=== PATIENT | female | born 2005 | race Caucasian/White ===

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

== ENCOUNTER 2024-08-30 07:13 | Outpatient (CLI) | payer BC, SELFPAY ==
--- NOTE | 2024-08-30 07:15 | CRLHL7_ITS ---
For Patients: As a result of the Cures Act, medical imaging exams and procedure reports are released immediately into your electronic medical record. You may view this report before your referring provider. If you have questions, please contact your health care provider. OB ULTRASOUND INDICATION: Dating. TECHNIQUE: Real time grayscale imaging of the fetus was performed. Transvaginal. LMP: 07/03/2024. ANDRES by LMP: 04/09/2025. GA: 8 w, 2 d. Previous US: No. CRL: 1.9 cm. 8 w 3 d. ANDRES: 04/08/2025. FHR: 171 BPM. Gestational sac: 2.4 cm. Appears within normal limits. Yolk sac: 3.4 mm. Appears within normal limits. Right ovary: 3.1 x 1.4 x 2.0 cm. Left ovary: 5.3 x 5.3 x 6.1 cm. IMPRESSION: 1. Single living intrauterine with sonographic gestational age 8 weeks 3 days and sonographic due date 04/08/2025. 2. Subchorionic hemorrhage measures 1.2 x 0.6 x 2.0 cm. 3. Simple circumscribed left ovarian cyst measures 5.1 x 4.5 x 5.6 cm. Casey Shelton M.D. Diagnostic Radiologist [email or web address] [email or web address] [email or web address]/Dictated by: Casey Shelton MD @ 08/30/2024 9:29:00 AM (Electronically Signed)
== END 2024-08-30 07:14 | disposition home or self-care (01) ==
LOC: US 07:15
PROVIDERS: PCP Pediatrics; Referring Provider Advanced Practice Midwife; Visit Provider Advanced Practice Midwife
DX: Z34.91 Encounter for supervision of normal pregnancy, unspecified, first trimester (principal); O20.9 Hemorrhage in early pregnancy, unspecified; O34.81 Maternal care for other abnormalities of pelvic organs, first trimester; N83.292 Other ovarian cyst, left side; Z3A.08 8 weeks gestation of pregnancy
CPT/HCPCS: 76817; 83021; 86592; 86703; 86704; 86706; 86762; 86787; 86803; 86850; 86900; 86901; 87086; 87340

== ENCOUNTER 2024-09-28 12:28 | Outpatient (CLI) | payer BC, SELFPAY | END 2024-09-28 12:29 | disposition home or self-care (01) | LOC: NFLDREF 10-05 17:17 | PROVIDERS: PCP Pediatrics; Referring Provider Pediatrics; Visit Provider Advanced Practice Midwife | DX: Z34.81 Encounter for supervision of other normal pregnancy, first trimester (principal); R82.90 Unspecified abnormal findings in urine | CPT/HCPCS: 87086; 87491; 87591 ==

== ENCOUNTER 2024-11-26 11:36 | Outpatient (CLI) | payer MEDICAID, SELFPAY ==
--- NOTE | 2024-11-26 11:30 | CRLHL7_ITS ---
For Patients: As a result of the Century Cures Act, medical imaging exams and procedure reports are released immediately into your electronic medical record. You may view this report before your referring provider. If you have questions, please contact your health care provider. OB ULTRASOUND SURVEY LMP: 07/03/2024. ANDRES by LMP: 04/09/2025. GA: 20 w, 6 d. INDICATION: anatomy. TECHNIQUE: Real time grayscale imaging of the fetus was performed. Evaluate anatomy. Transabdominal imaging performed. position: Vertex. Cervix: Visualized. Technique: Transabdominal. Length of closed cervix: 3.6 cm. Placenta/cord: Posterior. Technique: Transabdominal. Placenta tip to internal OS: 11.2 cm. Umbilical Cord: 3-vessel cord. Placenta insertion: Marginal (within 2 cm of placenta edge). Amniotic Fluid: 3.6 cm SDP (greater than/equal to: 2- less than 8 cm). SURVEY: Observed Structures. Calvarium/Spine: Cerebellum: 2.2 cm, 21 w 4 d. Cisterna Magna: 2.9 mm. Nuchal Fold: 4.3 mm. Lateral Ventricle: 4.7 mm. CSP: Yes. Midline Falx: Yes. Choroid Plexus: Yes. Spine: Yes. Abdomen: Stomach: Yes. Abd Cord Insertion: Yes. Urinary Bladder: Yes. Kidneys: Yes. Diaphragm: Yes. Face: Nose/lips: Yes. Orbital view: Yes. Profile: Yes. Limbs: Upper Extremities: Yes. Lower Extremities: Yes. Hands: Yes. Feet: Yes. Vascular: 4-Chamber Heart: Yes. LVOT: Yes. RVOT: Yes. 3VV: Yes. 3VTV: Yes. BPD: 4.8 cm. 20 w, 3 d, 32.3 percent. HC: 18.5 cm. 20 w, 6 d, 40.7 percent. AC: 15.9 cm. 21 w, 0 d, 47.7 percent. FL: 3.5 cm. 21 w, 1 d, 50.4 percent. FL/AC ratio: 22.19 percent. HC/AC ratio: 1.17. heart rate: 139 bpm. age by this US: 21 w, 0 d. ANDRES by this US: 04/08/2025. EFW: 1392.43 g. Weight: 0 lbs, 14 oz. Percentile by ANDRES: 53.1 percent. IMPRESSION: 1. Marginal placental cord insertion located 1.4 cm from the placental edge. 2. Concordance of clinical and sonographic dating. 3. Normal anatomy. Casey Shelton M.D. Diagnostic Radiologist [email or web address] [email or web address]/Dictated by: Casey Shelton MD @ 11/26/2024 4:20:00 PM (Electronically Signed)
== END 2024-11-26 11:37 | disposition home or self-care (01) ==
LOC: US 11:36
PROVIDERS: PCP Pediatrics; Visit Provider Advanced Practice Midwife
DX: Z34.92 Encounter for supervision of normal pregnancy, unspecified, second trimester (principal); O43.192 Other malformation of placenta, second trimester; Z3A.20 20 weeks gestation of pregnancy
CPT/HCPCS: 76805

== ENCOUNTER 2024-12-02 19:08 | Outpatient (CLI) | payer MEDICAID, SELFPAY ==
--- OUTSIDE RECORDS SUMMARY | 2024-12-02 18:43 | XMS_ITS | Clinical Summary ---
Author Organization [facility] Address [address] [place] [address] Care Team Providers Care Panel Flow Machine Operator Name Role Phone Unavailable Primary Care Provider Unavailabl e Source Comments Patient records contain information from all sites at [facility]. For routine questions regarding patient records, call [phone] during business hours, M-F 8:00 AM - 5:00 PM Central Time. Record requests for emergency care only can be directed to [phone] at any time.[facility] Allergies Active Allergy Reactions Criticality Noted Date Comments Ceftriaxone Other (see comments) 2004 PN: LW Reaction: HIVES Medications * This document contains information received from the source organization and may not represent a complete record from that organization. No known medications Active Problems Problem Noted Date Diagnosed Date Personal History Of Infectio us And Parasitic Disease (COVID-19) 04/11/2020 Immunizations Immunization Administration Dates Next Due 9vHPV 07/01/2016,02/14/2016,12/29/2015 DTaP / Hep B / IPV (Pediarix) 02/15/2005, 005,2004 DTaP-IPV 12/14/2009 H1N1 All Forms 04/04/2009 HepA Pediatric/Adolescent 12/30/2016,08/04/2007 Hib (PRP-OMP) (PedvaxHIB) 2004,2004 MCV4 (Menactra)(Discontinued) 07/31/2020 MCV4 (Menveo) 12/29/2015 MMR 12/14/2009,08/27/2005 MenB (BEXSERO) 07/25/2021 PCV7 (discontinued) 02/15/2005,2004,2004 Tdap 11/05/2021,12/29/2015 VA 12/14/2009,08/27/2005 influenza LAIV (Nasal) (2 ye ars through 49 years) 03/02/2014,03/24/2013 influenza trivalent LAIV (Na sarbjit) (2 years through 49 years) 02/27/2012,02/22/2011 influenza trivalent vaccine (6 months and older)(PF) 03/17/2010,04/04/2009,04/20/2008,2006,07/08/2006,03/22/2005,02/15/2005 influenza vaccine quad (FLUZONE/FLUARIX) (6 months and older)(PF) 03/06/2022,03/16/2021,03/27/2020,2018,03/27/2018,03/13/2017,02/14/2016,1 05/17/2014 Social History Tobacco Use Types Packs/Day Years Used Date Smoking Tobacco: Never Smokeless Tobacco: Never Alcohol Use Standard Drinks/Week Comments Never 0 (1 standard drink = 0.6 oz pur e alcohol) Comments Unknown Sex and Gender Information Value Date Recorded Sex Assigned at Not on file Legal Sex Female 9:53 AM COPY CUTTER Gender Identity Not on file Sexual Orientation Not on file Last Filed Vital Signs Vital Sign Reading Time Taken Comments Blood Pressure 101/70 05/19/2024 1:31 PM COPY CUTTER Pulse 84 05/19/2024 1:31 PM COPY CUTTER Temperature 35.6 C (96.1 F) 05/19/2024 1:31 PM COPY CUTTER Respiratory Rate 16 05/19/2024 1:31 PM COPY CUTTER Oxygen Saturation - - Inhaled Oxygen Concentration - - Weight 51.6 kg (113 lb 12.1 oz) 05/19/2024 1:31 PM COPY CUTTER Height 164.7 cm (5' 4.84) 05/19/2024 1:31 PM CS T Body Mass Index 19.02 05/19/2024 1:31 PM COPY CUTTER Plan of Treatment Health Maintenance Due Date Last Done Comments Chlamydia and Gonorrhea Screening 2004 HIV Screening 2004 Hearing Screening during Well Child Visit 2004 Hepatitis C Screening 2004 TB Screening during Well Child Visit 2004 1 week Well Child Check-Up 2004 1 month Well Child Check-Up 2004 2 month Well Child Check-Up 2004 4 month Well Child Check-Up 2004 9 month Well Child Check-Up 03/13/2005 15 month Well Child Check-Up 09/10/2005 18 month Well Child Check-Up 12/11/2005 2 year Well Child Check-Up 06/13/2006 30 month Well Child Check-Up 12/11/2006 3 year Well Child Check-Up 06/13/2007 Well Child Check-Up Completed in Past Year 06/13/2007 5 year Well Child Check-Up 06/13/2009 6 year Well Child Check-Up 06/13/2010 7 year Well Child Check-Up 06/13/2011 8 year Well Child Check-Up 06/13/2012 10 year Well Child Check-Up 06/13/2014 12 year Well Child Check-Up 06/13/2016 13 year Well Child Check-Up 06/13/2017 13 year Well Child Check-Up 06/13/2018 Vision Screening during Well Child Visit 2018 14 year Well Child Check-Up 06/13/2019 16 year Well Child Check-Up 06/13/2021 MenB Vaccine (2 of 2 - Bexsero SCDM 2-dose series) 01/25/2022 07/25/2021 17 year Well Child Check-Up 06/13/2022 18 year Well Child Check-Up 06/13/2023 COVID-19 Vaccine ( season) 2024 10/10/2020, 09/19/2020 Depression Screening (Annual PHQ-2) 05/12/2024 19 year Well Child Check-Up 06/13/2024 Well Child Check-Up ([facility]) 06/13/2024 Influenza Vaccine (#1) 2025 2, 03/16/2021, 03/27/2020, Additional history exists DTaP,Tdap,and Td Vaccines (7 - Td or Tdap) 11/06/2031 11/05/2021, 12/29/2015, 12/14/2009, Additional history exists Hepatitis B Vaccines Completed 02/15/2005, 2004, 2004 Pneumococcal vaccine (0-49 years) Aged Out 02/15/2005, 2004, 2004 No longer eligible based on patient's age to complete this topic IPV Vaccines Completed 12/14/2009, 11/2004, 2004, Additional history exists Varicella Vaccines Completed 12/14/2009, 08/27/2005 HPV Vaccines Completed 07/01/2016, 09/2015, 12/29/2015 Anemia/Iron Deficiency Screening During Well Child Visit (if High Risk Menstruating Female) Completed 01/27/2019 Meningococcal Vaccine Completed 07/31/2020, 016 Insurance Post-i Post-i
--- OUTSIDE RECORDS SUMMARY | 2024-12-02 18:43 | XMS_ITS | Clinical Summary ---
Author Organization [facility] Address [address] [place] [address]. [place] [address] Care Team Providers Care Hydraulic Technician Name Role Phone Sara Lemus DO Primary Care Provider [phone] Allergies No known active allergies Medications No known medications Social History Tobacco Use Types Packs/Day Years Used Date Smoking Tobacco: Never Assessed PHQ-2 Answer Date Recorded PHQ-2 Score 1 04/22/2019 Adolescent Education Answer Date Record ed Getting School Help Needed Not on file 02/25 Comments No Sex and Gender Information Value Date Recorded Sex Assigned at Not on file Legal Sex Female 4:49 AM ESCORT BLIND Gender Identity Not on file Sexual Orientation Not on file Last Filed Vital Signs Vital Sign Reading Time Taken Comments Blood Pressure 111/75 04/22/2019 2:53 PM ESCORT BLIND Pulse 92 04/22/2019 2:53 PM ESCORT BLIND Temperature - - Respiratory Rate 18 04/22/2019 2:53 PM ESCORT BLIND Oxygen Saturation 99% 04/22/2019 2:53 PM ESCORT BLIND Inhaled Oxygen Concentration - - Weight 45.4 kg (100 lb) 04/22/2019 2:53 PM ESCORT BLIND Height 160 cm (5' 3) 04/22/2019 2:53 PM ESCORT BLIND Body Mass Index 17.71 04/22/2019 2:53 PM ESCORT BLIND Plan of Treatment Not on file Insurance [place] Care Teams Hydraulic Technician Relationship Specialty Start Date End Date Sara Lemus DO [facility] [address] [place] [address] PCP - General 03/29/19
--- OUTSIDE RECORDS SUMMARY | 2024-12-02 18:43 | XMS_ITS | Encounter Summary ---
Author Organization [facility] Address [address] [place] [address] Care Team Providers Care Information Systems Security Specialist Name Role Phone Sara Lemus DO Primary Care Provider [phone] Wale Castillo MD Unavailable [phone] Lakeisha Wyman MD Unavailable Unavaila ble Encounter Details Date Type Department Care Team (Late st Contact Info) Description 03/29/2019 Orders Only [facility] [place] [address] [place] [address] Wale Castillo MD [address] [place] [address] [address] [place], [place] [id number] Cough (Primary Dx) Social History Tobacco Use Types Packs/Day Years Used Date Smoking Tobacco: Never Assessed Comments Unknown Sex and Gender Information Value Date Recorded Sex Assigned at Not on file Legal Sex Female 4:49 AM WASTE MACHINE OPERATOR Gender Identity Not on file Sexual Orientation Not on file documented as of this encounter Plan of Treatment Pending Results Name Type Priority Associated Diagnoses Date /Time General PFT Lab (Please always keep checked) PFT Routine Cough 04/22/2019 2:02 PM WASTE MACHINE OPERATOR Scheduled Orders Name Type Priority Associated Diagnoses Orde r Schedule Pulmonary Function Test PFT Routine Cough 1 Occurrences starting 03/29/2019 until 03/29/2020 documented as of this encounter Visit Diagnoses Diagnosis Cough- Primary documented in this encounter Care Teams Information Systems Security Specialist Relationship Specialty Start Date End Date Sara Lemus DO [facility] [address] [place] [address] PCP - General 03/29/19 Wale Castillo MD [address] [place] [address] [address] [place] [address] Assigned Pediatric Specialist Provider 03/03/20 02/03/21 Lakeisha Wyman MD Assigned OBGYN Provider 11/03/21 12/07/21 documented as of this encounter
--- OUTSIDE RECORDS SUMMARY | 2024-12-02 18:43 | XMS_ITS | Clinical Summary ---
Author Organization [facility] Address [address] [place] [id number] Care Team Providers Care [employer] Agent Name Role Phone Tato Whitaker MD Primary Care Provide r Allergies Active Allergy Reactions Criticality Noted Date Comments Ceftriaxone *Unknown 2004 PN: LW Reaction: HIVES Medications benzonatate (TESSALON) 200 mg capsuleIndicati ons:Cough present for greater than 3 weeks Take 1 Capsule (200 mg) by mouth 3 times daily if needed for Cough. 21 Capsule 03/17/2024 Active Active Problems Problem Noted Date Diagnosed Date Atkins-Schlatter's disease, left 09/24/2017 Acute pain of left knee 09/19/2017 Avulsion fracture of tibial tuberosity 8 Myopia 03/04/2013 Resolved Problems Problem Noted Date Diagnosed Date Resolved Date Myopia 03/04/2013 03/04/2013 Encounters Date Type Department Care Team Description 12/02/[address] [facility] [address] [place] [address] [phone] Tato Whitaker MD Problem 10/21/[address] [facility] [address] [place] [address] [phone] Tato Whitaker MD Questions from Last 3 Months Immunizations Immunization Administration Dates Next Due AMB Influenza, IIV4 PF (=>6 mos Flulaval,Fluzone Fluarix)(Flu Clinic Only) 03/13/2017,03/17/2015 Social History Tobacco Use Types Packs/Day Years Used Date Smoking Tobacco: Never Smokeless Tobacco: Never Tobacco Cessation:Counseling Given: Yes Comments:no exposure Alcohol Use Standard Drinks/Week Comments No 0 (1 standard drink = 0.6 oz pur e alcohol) Comments No Sex and Gender Information Value Date Recorded Sex Assigned at Not on file Legal Sex Female 7:08 AM ALTERATION INSPECTOR Gender Identity Not on file Sexual Orientation Not on file Obstetrics History Last Filed Vital Signs Vital Sign Reading Time Taken Comments Blood Pressure 113/69 03/17/2024 8:07 PM ALTERATION INSPECTOR Pulse 85 03/17/2024 8:07 PM ALTERATION INSPECTOR Temperature 36.9 C (98.4 F) 03/17/2024 8:07 PM ALTERATION INSPECTOR Respiratory Rate 18 03/17/2024 8:07 PM ALTERATION INSPECTOR Oxygen Saturation 98% 03/17/2024 8:07 PM ALTERATION INSPECTOR Inhaled Oxygen Concentration - - Weight 49.4 kg (109 lb) 03/17/2024 8:07 PM ALTERATION INSPECTOR Height 158 cm (5' 2.21) 09/18/2018 3:18 PM CDT Body Mass Index - - Plan of Treatment Health Maintenance Due Date Last Done Comments Well Child Check for age 3-20 06/13/2007 Tetanus booster 07/12/2015 Depression screening for age 12+ 2016 HIV for age 15-65 07/12/2019 HPV series for age 9-26 (1 - 3-dose series) 07/12/2019 BMI (ht and wt on same day) for age 18+ 2022 Hepatitis C screening for ag e 18-79 2022 Hepatitis B series for 19+ ( 1 of 3 - 19+ 3-dose series) 07/12/2023 COVID-19 vaccine series (2023- season) 2024 10/10/2020, 09/19/2020 Influenza Vaccine (#1) 2025 7, 03/17/2015 Meningococcal series for age 11-21 Aged Out No longer eligible b ased on patient's age to complete this topic Pneumococcal series for age 6-49 Aged Out No longer eligible b ased on patient's age to complete this topic Care Teams [employer] Agent Relationship Specialty Start Date End Date Tato Whitaker MD PCP - General 07/30/06
[2024-12-02 18:44] VITALS: BP 102/66; PULSE 79; RESP 16; TEMP 36.4; O2SAT 97; BMI 21.3
[2024-12-02 19:19] VITALS: PULSE 65; O2SAT 99
[2024-12-02 19:39] VITALS: BP 101/61; PULSE 63; RESP 16; TEMP 36.8; O2SAT 98
[2024-12-02 20:00] LABS: Appearance Urine Clear (Clear)
--- NOTE | 2024-12-02 20:44 | P.OBLDTN_ITS ---
OB - Triage/Final Diagnosis Visit Information Time Seen by Provider: 20:40 Date Seen: 12/02/24 Date of evaluation: 12/02/24 Narrative: Juarez is a 19 year old 2 para 1 at 21.5 weeks gestation by LMP, who presents with sharp abdominal pain rated 10/10 for approximately one hour. She was seen in the ED prior to coming to the birthing unit, no medical cause was found there. She has a history of umbilical hernia repair and reports her pain felt like her hernia pain. It started at her umbilicus and radiated up towards her sternum. Holding pressure to the area helped with her pain but did not resolve it. At the time of my exam she was resting in bed and reporting pain to be 2/10. Abdomen soft, no guarding, wincing with palpation, states it is tender to palpation but not severe. Denies constipation, having large amount of gas or feeling ill in any way. We discussed possibility that she has some adhesions from her surgery that could cause the pain as her uterus grows or with positioning. Other possibilities include hard stool or gas pains. Encouraged heat or ice to area, holding pressure and Tylenol this evening for discomfort. If return of severe pain that does not resolve quickly should return for evaluat ion. She got up and ambulated before discharge and reported no increase in pain. FHR by doppler 150's. UA normal, denies leaking of fluid, vaginal discharge or bleeding. Patient and partner were comfortable with discharging home. Evaluation Laboratory results: Laboratory Tests 12/02/24 Range/Units 19:52 Urine Color Yellow (Yellow) Urine Appearance Clear (Clear) Urine pH 5.5 (5.0-8.5) Ur Specific Daggett 1.010 (1.000-1.030) Urine Protein Negative (Negative) Urine Glucose (UA) Negative (Negative) Urine Ketones Negative (Negative) Urine Blood Negative (Negative) Urine Nitrite Negative (Negative) Urine Bilirubin Negative (Negative) Urine Urobilinogen 0.2 (0.2-1.0) Ur Leukocyte Esterase Negative (Negative) Vital signs: Vital Signs - 24 hr 12/02/24 18:44 12/02/24 19:19 12/02/24 19:39 Temperature 97.5 F L Pulse Rate Pulse Rate [Pulse Oximeter] 79 Respiratory Rate 16 Blood Pressure Blood Pressure [Right Upper Arm] 102/66 Pulse Oximetry 97 99 98 Oxygen Delivery Method Room Air 12/02/24 19:39 12/02/24 19:39 12/02/24 19:39 Temperature 98.3 F Pulse Rate 63 Pulse Rate [Pulse Oximeter] Respiratory Rate 16 Blood Pressure 101/61 Blood Pressure [Right Upper Arm] Pulse Oximetry Oxygen Delivery Method Final Diagnosis (1) Abdominal pain affecting : Status: Acute
[2024-12-02] MEDS: ACETAMINOPHEN 500 MG TABLET 1000 MG PO (20:47)
--- NOTE | 2024-12-02 21:05 | PC.NURSE ---
Pt here at 21.5 weeks for abdominal pain. Pt reported sharp pain starting at her umbilicus and traveling up to the epigastric area. Reported that the pain was 10/10 and lasted about an hour. Pt was evaluated in the ED prior to coming to the center. Upon arrival to the center, pt stated the pain had mostly subsided but was still there at a 2/10. She reported a surgical history of an umbilical hernia repair. Pt also reported some low back pain that comes and goes and is worse on the right side versus the left side. UA was collected and sent. Summer Elliott CNM came to bedside to evaluate patient. FHR was assessed via doppler. Pt was given oral tylenol prior to discharging home with significant other. All discharge information was discussed with the patient and the patient left the unit ambulatory at 2100.
== END 2024-12-02 21:00 | disposition home or self-care (01) ==
LOC: ED 19:08 → OB 19:08
PROVIDERS: PCP Pediatrics; Visit Provider Advanced Practice Midwife
DX: O26.899 Other specified pregnancy related conditions, unspecified trimester (principal); R10.9 Unspecified abdominal pain
CPT/HCPCS: 81003; G0463; A9270

== ENCOUNTER 2025-01-17 10:15 | Outpatient (CLI) | payer MEDICAID, SELFPAY | END 2025-01-17 10:16 | disposition home or self-care (01) | LOC: NFLDREF 01-20 16:52 | PROVIDERS: PCP Pediatrics; Referring Provider Pediatrics; Visit Provider Advanced Practice Midwife | DX: Z34.90 Encounter for supervision of normal pregnancy, unspecified, unspecified trimester (principal); R73.09 Other abnormal glucose | CPT/HCPCS: 86592 ==

== ENCOUNTER 2025-01-20 15:14 | Outpatient (CLI) | payer MEDICAID, SELFPAY ==
[2025-01-20 15:30] VITALS: BP 109/64; PULSE 82; PULSE 83; RESP 16; TEMP 36.8; O2SAT 98
[2025-01-20 16:04] LABS: Amnisure Rom* Negative
--- NOTE | 2025-01-20 16:26 | PC.OBNST ---
NST Note NST Note Start: 01/20/25 15:34 Freq: ONCE Status: Active Protocol: Document 01/20/25 16:06 CUAUHTEMOC (Rec: 01/20/25 16:07 [id number] [id number]) NST Note 2 Para (# of births) 1 EDC 04/09/25 Gestational Age In 28 Weeks & 5 Days Weeks & Days Patient Presented Leaking fluid with Complaint(s) of Other Complaints states after she voided on the toliet she felt a gush of fluid around 1300 today. Amnisure done and was negative. Reactive Yes Appropriate for Yes Gestational Age GERRY Damon RN Date 01/20/25 Reactive Yes Appropriate for Yes Gestational Age GERRY Rondon CNM Date 01/20/25 OB NST charge Yes Complete NST Note Yes via Write Note The provider's electronic signature indicates the NST is reactive/appropriate for gestational age. *Note to provider: If an addendum is required, open the patient's chart and click on the note under the Nurse/Allied Health tab.
[2025-01-20 16:36] LABS: Appearance Urine Clear (Clear)
[2025-01-20 16:40] LABS: Trichomonas No Trichomonas Seen (None Seen)
== END 2025-01-20 16:36 | disposition home or self-care (01) ==
LOC: OB OUT 15:14 → OB 15:15
PROVIDERS: PCP Pediatrics; Visit Provider Midwife
DX: O47.03 False labor before 37 completed weeks of gestation, third trimester (principal); Z3A.28 28 weeks gestation of pregnancy
CPT/HCPCS: 59025; 81003; 84112; 87086; 87210; G0463

== ENCOUNTER 2025-01-21 08:47 | Outpatient (CLI) | payer MEDICAID, SELFPAY | END 2025-01-21 08:48 | disposition home or self-care (01) | LOC: NFLDREF 01-25 08:49 | PROVIDERS: PCP Pediatrics; Referring Provider Pediatrics; Visit Provider Advanced Practice Midwife | DX: R73.09 Other abnormal glucose (principal) | CPT/HCPCS: 82951; 82952 ==

== ENCOUNTER 2025-03-03 14:25 | Outpatient (CLI) | payer MEDICAID, SELFPAY | END 2025-03-03 14:26 | disposition home or self-care (01) | LOC: NFLDREF 03-05 19:16 | PROVIDERS: Visit Provider Advanced Practice Midwife | DX: Z34.93 Encounter for supervision of normal pregnancy, unspecified, third trimester (principal) | CPT/HCPCS: 82728 ==

== ENCOUNTER 2025-03-06 01:19 | Outpatient (CLI) | payer MEDICAID, SELFPAY ==
[2025-03-06 01:37] VITALS: BP 122/72; PULSE 86
[2025-03-06] MEDS: ACETAMINOPHEN 500 MG TABLET 1000 MG PO (02:08)
[2025-03-06 02:15] LABS: Appearance Urine Clear (Clear)
--- NOTE | 2025-03-06 03:46 | PC.OBNST ---
NST Note NST Note Start: 03/06/25 01:27 Freq: ONCE Status: Active Protocol: Document 03/06/25 03:34 AML (Rec: 03/06/25 03:36 AML No Response) NST Note 2 Para (# of births) 1 EDC 04/09/25 Gestational Age In 35 Weeks & 1 Days Weeks & Days Patient Presented Pain with Complaint(s) of Other Complaints Low abdominal pain, sharp. Described as constant but also that it comes and goes. Later complained of right upper quadrant pain. Also complained of right ear pain. Reactive Yes Appropriate for Yes Gestational Age GERRY Rosen RN Date 03/06/25 Reactive Yes Appropriate for Yes Gestational Age GERRY Santiago RN Date 03/06/25 OB NST charge Yes Complete NST Note Yes via Write Note The provider's electronic signature indicates the NST is reactive/appropriate for gestational age. *Note to provider: If an addendum is required, open the patient's chart and click on the note under the Nurse/Allied Health tab.
== END 2025-03-06 03:30 | disposition home or self-care (01) ==
LOC: OB OUT 01:19 → OB 01:20
PROVIDERS: Visit Provider Advanced Practice Midwife
DX: O47.03 False labor before 37 completed weeks of gestation, third trimester (principal); Z3A.35 35 weeks gestation of pregnancy
CPT/HCPCS: 59025; 81003; G0463; A9270

== ENCOUNTER 2025-03-17 16:39 | Outpatient (CLI) | payer MEDICAID, SELFPAY ==
[2025-03-18 12:23] LABS: Strep B DNA Probe Negative (Negative)
[2025-03-18 12:38] LABS: Strep B Susceptibility Needed? No
== END 2025-03-17 16:40 | disposition home or self-care (01) ==
LOC: NFLDREF 16:39
PROVIDERS: Visit Provider Advanced Practice Midwife
DX: Z34.93 Encounter for supervision of normal pregnancy, unspecified, third trimester (principal)
CPT/HCPCS: 87081; 87653

== ENCOUNTER 2025-03-28 23:01 | Outpatient (CLI) | payer MEDICAID, SELFPAY ==
[2025-03-28 23:10] VITALS: RESP 16; TEMP 36.8
[2025-03-28 23:12] VITALS: BP 112/70; PULSE 101; PULSE 90; O2SAT 98
[2025-03-28 23:37] LABS: Amnisure Rom* Negative
--- NOTE | 2025-03-28 23:54 | PC.OBNST ---
NST Note NST Note Start: 03/28/25 23:02 Freq: ONCE Status: Active Protocol: Document 03/28/25 23:47 [facility] (Rec: 03/28/25 23:54 [facility] [id number]) NST Note 2 Para (# of births) 1 EDC 04/09/25 Gestational Age In 38 Weeks & 2 Days Weeks & Days Patient Presented Leaking fluid with Complaint(s) of Reactive Yes Appropriate for Yes Gestational Age GERRY Ellis RN Date 03/28/25 Reactive Yes Appropriate for Yes Gestational Age GERRY Delgado RN Date 03/28/25 OB NST charge Yes Complete NST Note Yes via Write Note The provider's electronic signature indicates the NST is reactive/appropriate for gestational age. *Note to provider: If an addendum is required, open the patient's chart and click on the note under the Nurse/Allied Health tab.
== END 2025-03-28 23:47 | disposition home or self-care (01) ==
LOC: OB OUT 23:01 → OB 23:02
PROVIDERS: Visit Provider Advanced Practice Midwife
DX: O47.1 False labor at or after 37 completed weeks of gestation (principal); Z3A.38 38 weeks gestation of pregnancy
CPT/HCPCS: 59025; 84112; G0463

== ENCOUNTER 2025-03-30 11:10 | Inpatient (IN) | payer MEDICAID, SELFPAY ==
[2025-03-30] VITALS (17 sets, daily range): BP systolic 103–132; BP diastolic 58–76; PULSE 56–91; RESP 16–18; TEMP 36.6–36.9; O2SAT 97–100
--- NOTE | 2025-03-30 11:20 | W.PM.LDBA ---
Subjective History of Present Illness Date Seen: 03/30/25 Narrative: Patient is being admitted to Labor and Delivery for spontaneous onset of labor without ROM. She is a 19 year old at 38.4 weeks gestation. Her full history and physical was dictated by Almas Avila on 03/25/25. Please see this for details. she reports ctx started at 0900 this AM. Denies LOF, but has reported some spotting since an Amnisure was collected a few days ago. Specific Issues/Plans Partner: Manny-boyfriend, this is his first child H&P:? 03/25/25 by Buck MARQUEZ? please ask about waterbirth at 37 wk visit # Hx anxiety and depression? Stable at NOB visit? #? Simple circumscribed left ovarian cyst measures 5.1 x 4.5 x 5.6 cm seen on first trimester US. #? Marginal cord insertion (1.4 cm from placental edge) ?no testing indicated # Failed 1 hour, 150 Recommended 3 hour gct: passed all values # Anemia, hgb 10.7 at 28 weeks Recommended Iron supplement EOD 02/02/2025. 02/17- has not yet started but says will start supplement today-poor adherence to supplementation 37w hgb-pending #rash of buttocks 03/25-triam cream given Imaging:??? Anatomy US (11/26/2024): IMPRESSION: 1. Marginal placental cord insertion located 1.4 cm from the placental edge. 2. Concordance of clinical and sonographic dating. 3. Normal anatomy. Vaccinations:?? COVID: declines? Flu: offer at 34 week visit Tdap: undecided? RSV: offer at 34 week visit? 32 week mental health: PHQ 2. RADHA 0.? Last pap:? [Only high-risk abnormal pap results in problem list]? OB - Problem Based A/P Additional Plan (1) Anemia affecting : Status: Acute (2) Family history of factor V Leiden mutation: Problem details: pt has been tested and does not have herself Status: Acute (3) Spontaneous onset of labor: Status: Acute Plan ASSESSMENT:? 19 at 38.4 weeks gestation? complicated by:?anemia Labor type: Spontaneous, Early/Active labor? Category 1 FHR pattern.?? Labor complicated by: none? GBS neg? ? PLAN:? 1. Routine intrapartum cares as ordered. Continue with expectant management? 2. Monitoring per policy, intermittent? 3. Planning unmedicated . Candidate for analgesia of choice.??Desires to utilize nitrous oxide for labor management 4. Patient encouraged to reposition and ambulate to promote physiologic labor and .? 5. Anticipate ? Delivery/Labor/Induction Plan Plan: expectant management OB Exam Physical Exam Narrative: Vitals Reviewed Constitutional:? Alert and oriented x3 HEENT:? Normocephalic, atraumatic Neck:? Supple Lungs:? Clear to auscultation bilaterally Heart:? Regular rate and rhythm, no murmur, rub or gallop Abdomen:? Soft, nontender, and gravid. Vertex by bedside US Extremities:? No edema or erythema Cervix: 6 cm/90%/0 station/vertex, per RN exam NST: 125 bpm/mod variability/+ accelerations/no decelerations/Reactive contractions about every 2-4 min, palpate mild/moderate
--- NOTE | 2025-03-30 13:55 | W.PM.OBVAGDE ---
OB Procedure Vag Delivery Mother Details Mother Details: The patient is a 19 year-old, 2, Para 2 now, admitted on 03/30/25 at 38.4 gestation in spontaneous labor without ROM. Additional Details Amniotic Membrane Status: AROM Amniotic Membrane Rupture Date: 03/30/25 Amniotic Membrane Rupture Time: 12:50 Amniotic Membrane Fluid Description: Meconium Stained Analgesia/Anesthesia Type: Nitrous Oxide Waterbirth: No Pitcoin: Yes (only for AMTSL) Intrapartal Events: Labor Augmentation Induction Method: AROM Delivery augmentation: rupture of membranes Labor Onset: 12:50 Complete: 13:28 Pushin:28 Heart: heart tones during second stage were not taken. prior to pushing they were 140s Delivery Details Delivery Date: 03/30/25 Delivery Time: 13:34 Route of delivery: Infant Gender: Female Viability: Alive; Heart Rate Present Position at Delivery: OA (with compound hand) Delivery Details: Patient was admitted for spontaneous labor and progressed with augmentation of AROM. AROM noted at 1250 with mec stained fluid. Patient was complete at 1328 and pushing at 1328. of a viable female at 1334 in semi-fowlers in the bed. Vertex delivered OA with compound hand. No nuchal cord or shoulder. Body delivered easily and without incident. Infant passed to mothers abdomen with a vigorous cry. Cord was clamped and cut at 4 minutes. APGARS were 8 at one minute and 9 at five minutes respectively. . Intact placenta with a 3 vessel cord delivered spontaneously at 1343. Fundus firm. no tear identified except for a superficial periuretheral on maternal L that was not repaired as not bleeding. QBL 300 cc. Mother and baby stable; mother plans to breastfeed. Infant weight pending. 1 Minute Interval Total Score: 8 5 Minute Interval Total Score: 9 Additional Details Shoulder Dystocia: No Placenta Delivery Time: 13:43 Placental Delivery Description: Spontaneous Procedure Done: Global Blood Loss: 300 Laceration: Periurethral - 1st Degree (not repeaired; hemostatic) Blood Loss Measurement Type: QBL Bakri Used: No Sponge/Need Count Correct: Yes (n/a; nothing added to table) Cord Vessel Description: 3 Vessels Event Summary Status: Mother and infant were stable after delivery. Disposition: floor
--- NOTE | 2025-03-30 14:10 | PM.OBPNL ---
Subjective Time Seen by Provider: 12:50 Date Seen: 03/30/25 Narrative: Juarez is here with EMMY without SROM. She has been laboring beautifully with her mother and SO at her side. she has been utilizing NO and tolerating ctx well. She desires AROM at this time. R/B/A reviewed and pt agreeable. Objective Exam: Vitals Reviewed Constitutional:? Alert and oriented x3 HEENT:? Normocephalic, atraumatic Cervix: 8 cm/100%/0 station/vertex FHTs via doppler: 140s bpm//accelerations;none heard/ecelerations;none heard/contractions: about every 2-3 min Vital Signs: Last Vital Signs Temp 97.9 F 03/30/25 13:13 Pulse 75 03/30/25 14:02 Resp 18 03/30/25 11:23 BP 130/67 03/30/25 14:02 Pulse Ox 100 03/30/25 11:22 Plan Plan: ASSESSMENT:? 19 yo at 38.4 weeks gestation? complicated by:?anemia Labor type: Spontaneous, Active labor? Category 1 FHR pattern on admit: FHTs in the 140s and reassuring througout labor Labor complicated by: none? GBS neg AROM: mec stained fluid? ? PLAN:? 1. Routine intrapartum cares as ordered. Continue with expectant management?+ AROM 2. Monitoring per policy, intermittent? 3. Planning unmedicated . Candidate for analgesia of choice.??utilizing NO 4. Patient encouraged to reposition and ambulate to promote physiologic labor and .? 5. Anticipate ?
[2025-03-30] MEDS: ACETAMINOPHEN 500 MG TABLET 1000 MG PO ×2 (15:17→21:17)
[2025-03-30] MEDS: IBUPROFEN 600 MG TABLET PO (18:19)
[2025-03-31] MEDS: IBUPROFEN 600 MG TABLET PO ×2 (02:41→16:41)
[2025-03-31 04:12] VITALS: BP 103/64; RESP 16; TEMP 36.7; O2SAT 97
[2025-03-31 06:43] LABS: Hemoglobin* 9.0 gm/dL (12.0-16.0)
--- NOTE | 2025-03-31 07:55 | P.DS_ITS ---
DS: Providers Provider Date Seen: 03/31/25 Date of admission: 03/30/25 11:10 Primary care physician: Not a Local Provider Admitting Clinician: Sandra Jung CNM Attending Physician on discharge: Buck MARQUEZ Date of Discharge: 03/31/25 DS: Diagnosis Discharge Diagnosis (1) care and examination of lactating mother: Status: Acute (2) Vaginal delivery: Status: Acute (3) Anemia affecting : Status: Acute Exam Narrative: Exam Narrative: GENERAL APPEARANCE:? normal affect, alert, no distress MOOD:? appropriate CHEST:? clear to auscultation HEART:? regular rate and rhythm ABDOMEN:? soft, non-tender the uterine fundus is 2 cm below Umbilicus, Midline and is appropriate for the stage of recovery. PERINEUM:? mild edema of the perineum, periurethral laceration well approximated and hemostatic EXTREMITIES:? normal and no edema Const: Vital Signs, click to edit/add: Vital Signs - 24 hr 03/30/25 11:21 03/30/25 11:22 03/30/25 11:23 Temperature 98 F Pulse Rate 74 Respiratory Rate 18 Blood Pressure 116/67 Blood Pressure [Ri ght Arm] Pulse Oximetry 100 Oxygen Delivery Me thod 03/30/25 11:57 03/30/25 12:39 03/30/25 13:01 Temperature Pulse Rate 80 70 63 Respiratory Rate Blood Pressure 103/65 Blood Pressure [Ri ght Arm] Pulse Oximetry Oxygen Delivery Me thod 03/30/25 13:13 03/30/25 13:48 03/30/25 13:48 Temperature 97.9 F Pulse Rate 74 Respiratory Rate 16 Blood Pressure 132/70 Blood Pressure [Ri ght Arm] Pulse Oximetry Oxygen Delivery Me thod 03/30/25 14:02 03/30/25 14:02 03/30/25 14:17 Temperature Pulse Rate 75 60 Respiratory Rate 16 Blood Pressure 130/67 129/76 Blood Pressure [Ri ght Arm] Pulse Oximetry Oxygen Delivery Me thod 03/30/25 14:17 03/30/25 14:48 03/30/25 14:48 Temperature Pulse Rate 60 Respiratory Rate 16 16 Blood Pressure 116/58 L Blood Pressure [Ri ght Arm] Pulse Oximetry Oxygen Delivery Me thod 03/30/25 15:02 03/30/25 15:02 03/30/25 15:14 Temperature 98.5 F Pulse Rate 67 Respiratory Rate 16 16 Blood Pressure 106/62 Blood Pressure [Ri ght Arm] Pulse Oximetry Oxygen Delivery Me thod 03/30/25 15:33 03/30/25 15:33 03/30/25 15:47 Temperature Pulse Rate 56 L 58 L Respiratory Rate 16 Blood Pressure 106/61 113/71 Blood Pressure [Ri ght Arm] Pulse Oximetry Oxygen Delivery Me thod 03/30/25 15:47 03/30/25 20:28 03/30/25 23:40 Temperature 98.5 F 98.4 F Pulse Rate Respiratory Rate 16 16 16 Blood Pressure Blood Pressure [Ri ght Arm] 116/73 113/70 Pulse Oximetry 98 97 Oxygen Delivery Me thod Room Air Room Air 03/31/25 04:12 Temperature 98.1 F Pulse Rate Respiratory Rate 16 Blood Pressure Blood Pressure [Ri ght Arm] 103/64 Pulse Oximetry 97 Oxygen Delivery Me thod Room Air OB - DS: Summary Hospital Course Hospital Course: Juarez is a 19 y.o. G 1 P 1001 who was admitted to L & D for active labor.? She had a NVD that was uncomplicated. The patient feels well.? The pain is well controlled with current medications.? She has no new complaints.? She is breast feeding and reports things are going well. the patient has done well.? Vitals have been stable.? She has remained afebrile.? Has a good appetite, is tolerating a general diet.? She is voiding without difficulty.? She is passing gas and has not had a bowel movement.? She is ambulating and denies any dizziness.? Has small amount of rubra lochia. She is undecided of plan for prevention.? ?? Problems: none? ?? plan:? Discharge home with baby.? Follow up in 2 weeks and 6 weeks.? , may see if needed? Hgb 9.0. Iron supplement to be continued orally every other day? ?Labs WNL or stable with trending? Call for signs/symptoms of preeclampsia? Peripartum Data Infant delivery method: Vaginal Laceration description: Periurethral - 1st Degree Episiotomy description: None complications: none [place] Infant Gender: Female Discharge Plan: Home Status at Discharge Functional status at discharge: independent ambulation Overall status at discharge: patient is progressing back to baseline Time Spent with Patient Time attestation: Total time spent providing and/or coordinating discharge services: Time spent: Less than 30 minutes Discharge Plan Discharge Disposition: Home, Self-Care Date of Admission: 03/30/25 11:10 Attending Provider on Discharge: Ruth Rondon Primary Care Provider: Provider,Not a Local Condition: Stable Anticipated Discharge Date/Time: 03/31/25 14:00 Discharge Medications: New acetaminophen 500 mg Tablet 1,000 mg PO Q6H PRN (Reason: Pain) Qty: 60 0RF docusate sodium 100 mg Capsule 100 mg PO DAILY Qty: 60 0RF ibuprofen 600 mg Tablet 600 mg PO Q6H PRN (Reason: Pain) Qty: 60 0RF Continued One-A-Day 400 mcg- 25 mg tablet,chewable 1 tab PO DAILY triamcinolone acetonide 0.1 % ointment 1 applic topical TID Qty: 80 1RF ferrous sulfate 325 mg (65 mg iron) tablet 325 mg PO Q OTHER DAY Qty: 90 0RF Discontinued metoclopramide HCl [Reglan] 10 mg tablet 10 mg PO Q6H PRN (Reason: nausea and vomiting) Qty: 30 0RF Rx Instructions: Take 1 tablets with Tylenol for headaches. Discharge Orders: Discharge Order (Routine); Ordered 03/31/25 Ordered By: Ruth Rondon Patient Education: OB Over the Counter Medication Information, OB Vaginal/Breast Feeding Additional Instructions: Discharge instructions were reviewed with the patient including signs and symptoms of infection and home going medications Nothing vaginally for 6 weeks: no tampons or intercourse Do not drive while taking narcotic pain medication(s) Off Work or School for 6 weeks Symptoms to report to doctor: * Bleeding that saturates more than one pad per hour * Passing clots larger than the size of a golf ball * Pain not relieved by prescribed medication * Fever above 100.4 degrees Fahrenheit * A foul vaginal odor * Difficulty in emotions, mood, and functions * Thoughts of hurting yourself and/or * Painful, reddened area in your breast * Any drainage, redness, or tenderness in your IV/epidural site * Severe headache that doesn't improve after taking medications * Changes in vision, including temporary loss of vision, blurred vision, and/or light sensitivity * Upper abdominal pain (usually under ribs on the right side) * Decrease in urination or painful, frequent urinating * Chest pain * Shortness of breath * Tenderness or pain with redness and/swelling in the calf(s) of your leg 2-week visit: discuss feeding concerns, review control options and screen for anxiety/depression. 6-week visit for an annual exam. consultation services are available to all mothers and babies for the first year after delivery.? To make an appointment, please call [phone]. Activity Level: Activity as Tolerated and No strenuous activity Discharge Diet: Regular Follow Up Appointments: [facility] [Provider Group] Forms: [employer] Info Instructions
[2025-03-31 08:29] VITALS: BP 111/69; PULSE 64; RESP 16; O2SAT 97
[2025-03-31] MEDS: DOCUSATE SODIUM 100 MG CAPSULE PO (09:52)
[2025-03-31 16:17] VITALS: BP 104/70; PULSE 72; RESP 16; O2SAT 96
== END 2025-03-31 18:45 | disposition home or self-care (01) | DRG 560 ==
LOC: OB OUT 11:35 → OB 11:35
PROVIDERS: Admitting Provider Midwife, Lay; Visit Provider Midwife, Lay
DX: O70.0 First degree perineal laceration during delivery (principal); O99.02 Anemia complicating childbirth; Z83.2 Family history of diseases of the blood and blood-forming organs and certain disorders involving the immune mechanism; Z3A.38 38 weeks gestation of pregnancy; Z37.0 Single live birth
CPT/HCPCS: 36415; 76815; 81003; 85018; 86592; A9270; J2590

== ENCOUNTER 2025-04-05 09:22 | Outpatient (CLI) | payer MEDICAID, SELFPAY ==
--- NOTE | 2025-04-05 10:34 | P.LACCB_ITS ---
Consult Note - Mom Date of Visit Date of visit: 04/05/25 Reason for consultation: Assistance Needed Visit Code: Visit Patient's Information Phone number: [phone] : 2 Para: 2 Allergies ceftriaxone Allergy (Unknown, Verified 03/30/25 10:48) Mother's Medical History: Medical History (Updated 04/02/25 @ 00:01 by Background Miguel) Family history of factor V Leiden mutation ?Z83.2 - Family history of diseases of the blood and blood-forming organs and certain disorders involving the immune mechanism (ICD-10) Irregular menses ?N92.6 - Irregular menstruation, unspecified (ICD-10) Dermatitis ?L30.9 - Dermatitis, unspecified (ICD-10) ?Z34.90 - Encounter for supervision of normal , unspecified, unspecified trimester (ICD-10) Acute anemia ?D64.9 - Anemia, unspecified (ICD-10) History of COVID-19 ?Z86.16 - Personal history of COVID-19 (ICD-10) Marijuana use during ?O99.320 - Drug use complicating , unspecified trimester (ICD-10) ?F12.90 - Cannabis use, unspecified, uncomplicated (ICD-10) Low maternal weight gain ?O26.10 - Low weight gain in , unspecified trimester (ICD-10) Group B streptococcal infection during ?O98.819 - Other maternal infectious and parasitic diseases complicating , unspecified trimester (ICD-10) ?B95.1 - Streptococcus, group b, as the cause of diseases classified elsewhere (ICD-10) Teen Normal labor ?O80 - Encounter for full-term uncomplicated delivery (ICD-10) ?Z37.9 - Outcome of delivery, unspecified (ICD-10) Depression ?F32.A - Depression, unspecified (ICD-10) Ventral hernia ?K43.9 - Ventral hernia without obstruction or gangrene (ICD-10) Sleep paralysis ?G47.8 - Other sleep disorders (ICD-10) Anxiety ?F41.9 - Anxiety disorder, unspecified (ICD-10) Work Plans: will return to work at some point, not sure when Delivery Information Delivery type: Vaginal Gestational Age: 38+4 Gestational Weight For Age: AGA Weight: 3.35 kg Discharge Weight: 3.124 kg Percentage weight loss: 6.8 Baby's Information Baby's Age at Visit: 6 days Baby's Provider or Clinic: [facility] Jaundice: No Past Experience Past Experience: Yes (x 15 months, no complications) Current Frequency of Day Feedings: q3 hrs, some cluster feeding noted Both Breasts: No Suck: strong Latch: mostly comfortable, left nipple a little sore Length of Time: 10-18 min Goals: at least 1 year Pumping Pumping: Yes Quantity Pumped: 3-4 oz, 1x/day at most Supplementing EBM Supplement: No Baby Elimination Number of Wet Diapers a Day: ea feeding Number of BM a Day: multiple/day; yellow and seedy in color Breast/Nipple Condition Breast Information: Breasts are symmetrical with rounded lower quadrants, intramammary distance is less than 1.5 inches. No erythema. Nipples are supple, everted prior to feeding. Breast Shape: Round Engorgement: No Maternal Nipple Condition - Left: Common Nipple and Other (slight scabbing noted) Maternal Nipple Condition - Right: Common Nipple Sore Nipples: Yes (slight on left) Interventions for Sore Nipples: Lansinoh/Nipple Cream (has been helping and pain less over the last 2 days) Baby Assessment Skin: Normal Tongue/frenulum: Normal/elastic Palate: Average Lips: Relaxed and Symmetrical Jaw Alignment: Symmetrical Mucosa: [place], moist Onsite Observation Pre-Feed weight: 3.374 kg Post-Feed weight: 3.45 kg Milk Transferred (mL): 76 Position: Cross cradle Attachment/latch-on achieved: Easily Suck pattern: Suck burst and normal rest Swallow: Gulping Behavior following feed: Alert, content Pre-Nursing Left Nipple: Within Normal Limits and Crusting/Scabs (mild) Pre-Nursing Right Nipple: Within Normal Limits Post-Nursing Left Nipple: Within Normal Limits Post-Nursing Right Nipple: Within Normal Limits Assessments/Interventions Assessments/Interventions: Babe latched to mom's RIGHT breast, latched easily with a wide gap, deep latch and comfort for mom and stayed nursing for 8 minutes. Transferred 42 ml of milk Babe then latched to mom's LEFT breast, latched equally well with support from mom to keep baby on deeply for initial latch and decreased pain for mom and nursed for another 5 minutes. Transferred 34 ml of milk. Total volume transferred: 76 ml Worked with mom to get baby on with an initial deep latch, gentle pressure to baby's shoulders to keep baby on deep while establishing suckling. Encourage mom to offer both breasts at each feeding to increase volume to baby and give mom relief from breast fullness. Discussed nursing behavior of every 2-3 hours, some cluster feeding is normal. Feed at lest every 4 hrs at night if baby is sleeping longer to protect mom's milk supply. Education provided: Early feeding cues to maximize timing of latching, Asymmetric latch technique for wide/deep latch to increase milk, Transfer for baby and increase comfort for mom, Supply/demand nature of milk supply, Sore nipple treatment options, Alternative feeding methods (SNS, cup, finger feeding, bottling), Pumping for milk management (discussed pumping as desired 1x/day to freeze some milk, and milk catchers to store some since she has a strong letdown) and Milk collection, storage Follow-Up Suggested follow up: Appointment as needed Time Spent Time spent with patient (min): 60 Meds Home Medications and Allergies Home Medications ?Medication ?Instructions ?Recorded ?Confirmed ?Type vitamins no.167-folic 1 tab PO DAILY 08/30/24 03/30/25 History acid 400 mcg-dha 25 mg chewable tablet (One-A-Day ) ferrous sulfate 325 mg (65 mg 325 mg PO Q OTHER DAY #9 0 tabs 02/17/25 03/30/25 Rx iron) tablet triamcinolone acetonide 0.1 % 1 applic topical TID #80 grams 03/25/25 03/30/25 Rx topical ointment acetaminophen 500 mg tablet 1,000 mg (2 x 500 mg) PO Q 6H PRN 03/31/25 Rx Pain #60 tabs docusate sodium 100 mg capsule 100 mg PO DAILY #60 cap s 03/31/25 Rx ibuprofen 600 mg tablet 600 mg PO Q6H PRN Pain #60 t abs 03/31/25 Rx Allergies Allergy/AdvReac Type Severity Reaction Status Date / Time ceftriaxone Allergy Unknown Verified 03/30/25 10:48
== END 2025-04-05 09:23 | disposition home or self-care (01) ==
PROVIDERS: Visit Provider Advanced Practice Midwife
DX: Z39.1 Encounter for care and examination of lactating mother (principal)
CPT/HCPCS: G0463